=== PATIENT | male | born 1965 | race Two or more races ===

== ENCOUNTER 2025-02-02 09:25 | Outpatient (AMB) | payer OTHER, SELFPAY ==
--- NOTE | 2025-02-02 09:24 | MHC.OFFVIS ---
Intake Visit Reasons: dysuria Intake Note: patient presnts today for: new pt dysuria urology medications: none blood thinners: none today's PVR: 39mls Mortgage Loan Officer Required: No Accompanied by: Self / Same As Patient Allergies No Known Allergies Allergy (Verified 02/02/25 09:26) HPI Comments Details: Nicolas is a pleasant male. He is a patient of Dr. Haines. He is seen for the following urologic conditions - dysuria Patient reported dysuria Prior UA and culture negative PSA 11/24 3.0 PVR 40 cc Reports cousin had a prostate procedure of some description GRAYSON normal 2+ smooth No clinical urology condition Follow with PCP Review of Systems Const Denies chills and Denies fever(s) Card Reports no additional complaints and Denies syncope Resp Denies cough GI Denies abdominal pain and Denies heartburn Reports as per HPI and Denies change in libido Neuro Denies syncope Psych Denies change in libido Endo Denies change in libido Physical Exam Const General: cooperative, healthy appearing, comfortable and no acute distress Orientation/consciousness: patient oriented x3 HEENT Face and sinus: Yes normal facial exam Mouth: moist mucous membranes Neck Neck: Yes normal visual inspection, Yes full ROM and Yes trachea midline Chest Chest palpation & inspection: normal inspection of the chest Resp Effort & Inspection: normal respiratory effort, able to speak in complete sentences and no respiratory distress GI Inspection: Yes normal to inspection Rectal Exam - Male: Yes normal sphincter tone and Yes prostate normal Male General Exam: Yes normal external exam Penis: normal penis and circumcised Meatus: meatus normal Scrotum: scrotum normal Testes: Testes normal Back/Spine/Pelvis Cervical Spine: normal cervical lordosis Thoracic/Lumbar Spine: thoracic and lumbar spine normal to inspection Skin General skin exam: no rashes or lesions noted Neuro General: patient oriented x3, gait normal, tone normal and moves all extremities Extrem General: Yes normal to inspection and Yes capillary refill normal Office Procedures Post Void Residual Post Residual Void Post Void Residual (PVR): 39 [id number] Void Residual by ultrasound Results AMB Urinalysis, Automated UA Leukoctes 0 Luann/uL Last Edit by LILIANE Holland on 02/02/25 09:42 UA Nitrite Last Edit by LILIANE Holland on 02/02/25 09:42 UA Urobilinogen 0.2 mg/dL Last Edit by LILIANE Holland on 02/02/25 09:42 UA Protein 0 mg/dL Last Edit by LILIANE Holland on 02/02/25 09:42 UA pH 5.5 Last Edit by LILIANE Holland on 02/02/25 09:42 UA Blood 0 Dorian/uL Last Edit by LILIANE Holland on 02/02/25 09:42 UA Specific Garden 1.015 Last Edit by LILIANE Holland on 02/02/25 09:42 UA Ketone Last Edit by LILIANE Holland on 02/02/25 09:42 UA Bilirubin 0 mg/dL Last Edit by LILIANE Holland on 02/02/25 09:42 UA Glucose 0 mg/dL Last Edit by LILIANE Holland on 02/02/25 09:42 Results Reviewed Results Reviewed: Laboratory Last Values Urine pH (Auto) 5.5 02/02/25 09:41 Specific Garden (Auto) 1.015 02/02/25 09:41 Urine Protein (Auto) 0 mg/dL 02/02/25 09:41 Glucose (UA)(Auto) 0 mg/dL 02/02/25 09:41 Urine Blood (Auto) 0 Dorian/uL 02/02/25 09:41 Urine Bilirubin (Auto) 0 mg/dL 02/02/25 09:41 Urine Urobilinogen (Auto) 0.2 mg/dL 02/02/25 09:41 Leukocyte Esterase (Auto) 0 Luann/uL 02/02/25 09:41 Assessment & Plan Assessment & Plan (1) Dysuria: Code(s): R30.0 - Dysuria Category: Medical Plan Reassurance p.r.n. follow-up Orders: Orders AMB Post Void Residual by ultrasound Today R30.0 - Dysuria AMB Urinalysis Automated Today Z13.9 - Encounter for screening, unspecified Patient Instructions: This note is constructed using voice recognition software. While every effort has been made to ensure accuracy water control station engineer errors may have been included. Imaging studies, laboratory and physical exam results were discussed and reviewed in detail. No major barriers to patient understanding were identified. An opportunity to ask questions regarding the treatment plan was provided. All questions were answered. The patient expressed understanding and agreement with the above treatment plan. The patient is aware they should contact our office by phone for worsening of their current condition or the appearance of new urologic symptoms. Compliance is encouraged with any medications and followup testing that is ordered. It is a privilege to participate in the urologic care of your patient. If you have any questions or concerns regarding treatment for the above conditions, or other urologic issues, please do not hesitate to contact me. The office telephone contact is [phone]. Sincerely, Dr Elmer Rueda MD, [facility] - Urology Compassionate Specialist Care for the Genitourinary System Coding Level of Care Code New Pt Level 3 (47691) Diagnoses Dysuria R30.0 CPT Codes Post Residual Void - PVR CPT Code: 21638-[id number] Void Residual by ultrasound ([id number])
--- OUTSIDE RECORDS SUMMARY | 2025-02-02 10:02 | XMS_ITS | Clinical Summary ---
Author Organization [employer] Address [address] [place] [address] [address] [place] [address] Care Team Providers Care Mica Patcher Name Role Phone Unavailable Primary Care Provider Unavailabl e Social History Tobacco Use Types Packs/Day Years Used Date Smoking Tobacco: Never Assessed Sex and Gender Information Value Date Recorded Sex Assigned at Male 03/02/2022 10:31 AM EDT Legal Sex Male 10:31 AM EDT Gender Identity Male 03/02/2022 10:31 AM EDT Sexual Orientation Straight 03/02/2022 10 :31 AM EDT Plan of Treatment Health Maintenance Due Date Last Done Comments CT Colonography 1963 Colonoscopy 1963 Colorectal Cancer Screening 1963 Depression Screening 1963 FIT DNA/Cologuard 1963 FIT 1963 FOBT 1963 Lipid Panel 1963 Sigmoidoscopy 1963 Disability Screening 1963 Alcohol/Substance Use Screening 1975 Tobacco Screening 1975 DTaP/Tdap/Td Vaccines (1 - Tdap) 1982 Pneumococcal Vaccine: 50+ Ye ars (1 of 1 - PCV) 2013 Zoster Vaccines (1 of 2) 2013 COVID-19 Vaccine ( - 2023-2 5 season) 2025 Influenza Vaccine (#1) 2025 RSV Patients and Pa tients Aged 60 years or older (1 - 1-dose 75+ series) 2038 HIB Vaccines Aged Out No longer eligi ble based on patient's age to complete this topic HPV Vaccines Aged Out No longer eligi ble based on patient's age to complete this topic Hepatitis A Vaccines Aged Out No long er eligible based on patient's age to complete this topic Hepatitis B Vaccines Aged Out No long er eligible based on patient's age to complete this topic IPV Vaccines Aged Out No longer eligi ble based on patient's age to complete this topic Meningococcal B Vaccine Aged Out No l onger eligible based on patient's age to complete this topic Meningococcal Vaccine Aged Out No phong karon eligible based on patient's age to complete this topic RSV under 20 months Aged Out No longe r eligible based on patient's age to complete this topic Rotavirus Vaccines Aged Out No longer eligible based on patient's age to complete this topic
--- OUTSIDE RECORDS SUMMARY | 2025-02-02 10:03 | XMS_ITS | Encounter Summary ---
Author Organization [employer] Address [address] [place] [address] [address] [place] [address] Care Team Providers Care Probe Operator Name Role Phone Unavailable Primary Care Provider Unavailabl e Encounter Details Date Type Department Care Team (Latest Contact Info) Description 02/03/2019 Abstract [facility] CONVERSIONS Dental, Provider, DDS Social History Tobacco Use Types Packs/Day Years Used Date Smoking Tobacco: Never Assessed Sex and Gender Information Value Date Recorded Sex Assigned at Male 03/02/2022 10:31 AM EDT Legal Sex Male 10:31 AM EDT Gender Identity Male 03/02/2022 10:31 AM EDT Sexual Orientation Straight 03/02/2022 10 :31 AM EDT documented as of this encounter Plan of Treatment Not on file documented as of this encounter Visit Diagnoses Not on filedocumented in this encounter
--- OUTSIDE RECORDS SUMMARY | 2025-02-02 10:03 | XMS_ITS | Clinical Summary ---
Author Organization [address] [place] [address] Address [address] [place] [address] Phone Care Team Providers Care Court Usher Name Role Phone Dana Haines Primary Care Provider Allergies No known active allergies Medications benzocaine-ment hoL (CHLORASEPTIC SORE THROAT) 6-10 mg lozenge Dissolve in the mouth. Active QUEtiapine (SEROquel) 50 mg tablet Take 1 tablet (50 mg total) by mouth at bedtime. Active sildenafiL (VIAGRA) 25 mg tablet Take 1 tablet (25 mg total) by mouth 1 (one) time each day if needed for erectile dysfunction. Active ibuprofen (ADVIL,MOTRIN) 600 mg tablet Take by mouth. A ctive bisacodyL (DULCOLAX) 5 mg EC tablet Take 2 tablets by mouth right before beginning bowel prep. See instructions provided by the office 2 tablet 5 Active polyethylene glycol (Golytely) 236-22.74-6.74 -5.86 gram solution Take 4L by mouth once for one dose. May substitue any PEG. Starting at 2PM the day before your procedure drink 1 8oz glasses at your own pace until you complete half of the gallon. Finish 2nd half of the gallon at 8PM. 4000 mL 5 Active Encounters Date Type Department Care Team Description 11/20/2024 Telephone Gastroenterology - [place] [address] [address] Dia Salazar MD from Last 3 Months Social History Tobacco Use Types Packs/Day Years Used Date Smoking Tobacco: Never Assessed Sex and Gender Information Value Date Recorded Sex Assigned at Not on file Legal Sex Male 2:27 AM EST Gender Identity Not on file Sexual Orientation Not on file Plan of Treatment Upcoming Encounters Date Type Department Care Team (Late st Contact Info) Description 02/13/2025 2:30 PM EDT Appointment [facility] [address] [place] [address] Anthony Torres DO [address] [facility] [address] [place] [address] Health Maintenance Due Date Last Done Comments Colorectal Cancer Screening: Colonoscopy 1963 DTaP,Tdap,and Td Vaccines (1 - Tdap) 1982 Pneumococcal Vaccine: 50+ Ye ars (1 of 1 - PCV) 2013 Zoster Vaccines (1 of 2) 2013 Cholesterol Screening (Lipid Panel) 06/01/2023 HIV Screening 06/01/2023 Hepatitis C Screening 06/01/2023 Social Influencers of Health Screening 06/01/2023 Depression Screening 05/03/2024 COVID-19 Vaccine (1 - 2023-2 5 season) 2025 Influenza Vaccine (#1) 2025 RSV Immunization Adult Patie nts (1 - 1-dose 75+ series) 2038 HIB [...] on patient's age to complete this topic MMR Vaccines Aged Out No longer eligi ble based on patient's age to complete this topic Meningococcal ACWY Vaccine Aged Out N o longer eligible based on patient's age to complete this topic Meningococcal B Vaccine Aged Out No l onger eligible based on patient's age to complete this topic RSV Immunization Patients Un pedro 20 months Aged Out No longer eligible b ased on patient's age to complete this topic Varicella Vaccines Aged Out No longer eligible based on patient's age to complete this topic Goals Goal Patient Goal Type Associated Problems Recent Progress Patient-Stated? Author Autogenerat ed Goal Care Plan Autogenerated Problem No Carolee, Herbie Additional Health Concerns Active Problems Noted Date Diagnosed Date Autogenerated Problem 01/29/2025 Insurance [facility] Member Subscriber Plan / Payer (Ef fective 2016-Present) Name:VEL CASTILLO Relation to Subscriber:Self Name:Vel Castillo Payer ID:[id number] Group ID:[id number] Type:Not on file Address: [place] [address] [address] [id number]her Relationship Specialty Start Date End Date Dana Haines PA [address] [place] [address] PCP - General 11/20/24
== END 2025-02-02 10:06 | disposition home or self-care (01) ==
LOC: HO.HUSH 09:26
PROVIDERS: PCP Physician Assistant; Visit Provider Urology
DX: R30.0 Dysuria (principal); Z13.9 Encounter for screening, unspecified
CPT/HCPCS: 99203

== ENCOUNTER → 2025-02-02 09:25 | Outpatient (BNVA) | payer OTHER, SELFPAY | PROVIDERS: PCP Physician Assistant; Visit Provider Urology | DX: R30.0 Dysuria (principal) | CPT/HCPCS: 51798; 81003; 99202 ==